=== PATIENT | female | born 1955 ===

== ENCOUNTER 2017-02-19 08:34 | Emergency (ER) | payer BC ==
--- NOTE | 2017-02-19 09:13 | UC ---
Knee Pain HPI - HPI Summary HPI Summary: 61 year old female with left knee complaint. LEFT KNEE INJURY 2 WKS AGO FROM A FALL. PT LANDED ON A ROCK DIRECTLY ON HER KNEE CAP. KNEE IS PAINFUL AND UNCOMFORTABLE WHEN PT IS ON IT. Can walk on it. Has had history of knee dislocating for many years. No significant swelling, ecchymosis or pain without movement. No weakness in the left leg or knee. Pain with movement especially after sitting for a while [ End ] - History of Current Complaint Chief Complaint: UCLowerExtremity Stated Complaint: LEFT KNEE PAIN Time Seen by Provider: 02/19/17 08:59 Hx Obtained From: Patient Hx Last Menstrual Period: NONE Onset/Duration: Sudden Onset Severity Initially: Moderate Severity Currently: Mild Pain Scale Used: 0-10 Numeric - 4 Character: Stiffness Aggravating Factor(s): Prolonged Standing, Stairs Alleviating Factor(s): Position Associated Signs And Symptoms: Positive: Negative - Allergies/Home Medications Allergies/Adverse Reactions: Allergies Allergy/AdvReac Type Severity Reaction Status Date / Time No Known Allergies Allergy Verified 02/19/17 08:49 Home Medications: Home Medications Esomeprazole Magnesium [Nexium 24Hr] 20 mg PO DAILY 02/19/17 [History Confirmed 02/19/17] Multiple Vitamins W/ Minerals [Multivitamin Womens] 1 tab PO DAILY 02/19/17 [ History Confirmed 02/19/17] Nortriptyline CAP* [Pamelor CAP*] 75 mg PO BEDTIME 02/19/17 [History Confirmed 02/19/17] Propranolol TAB* [Inderal TAB*] 1 tab PO DAILY 02/19/17 [History Confirmed 02/19] SUMAtriptan TAB* [Imitrex TAB*] 25 mg PO SEE INSTRUCTIONS 02/19/17 [History Confirmed 02/19/17] PMH/Surg Hx/FS Hx/Imm Hx Previously Healthy: Yes Psychological History: Other - migraine Other Psychological History: migraines-- none lately - Surgical History Surgical History: None - Family History Known Family History: Negative: Blood Disorder - Social History Lives: With Family Alcohol Use: Occasionally Substance Use Type: None Smoking Status (MU): Never Smoked Tobacco Review of Systems Musculoskeletal: Decreased ROM - left knee All Other Systems Reviewed And Are Negative: Yes Physical Exam Triage Information Reviewed: Yes Appearance: Well-Appearing, No Pain Distress, Well-Nourished Vital Signs: Initial Vital Signs Temp 99.1 F 02/19/17 08:41 Pulse 88 02/19/17 08:41 Resp 16 02/19/17 08:41 BP 109/77 02/19/17 08:41 Pulse Ox 100 02/19/17 08:41 Vital Signs Reviewed: Yes Respiratory Exam: Normal Cardiovascular Exam: Normal Musculoskeletal: Positive: Strength Intact, ROM Limited @ - with flexion and extension of the knee due to discomfort, Other: - Neg popliteal fossa swelling. no homans. no ecchymosis. no swelling. small healing abrasion bottom aspect of patella about 0.5 x 0.5 cm. no patellar pain to palpation. medial and lateral joint line without tenderness. pain with movement of the patella inferior and superior at the inferior patellar tendon the most tenderness that is still mild in nature. patella is not dislocated.. Negative: Edema @ Knee Pain Course/Dx - Course Course Of Treatment: Discussed with the nature of discomfort likely PFS / patellar tendon inflammation -- start meloxicam- refer to PT / start home PT and if Sx perist then go to Ortho. she declined xray at this time. 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 Please follow up with ortho if there are any concerns
[2017-02-19 09:14] VITALS: BP 109/77
== END 2017-02-19 09:22 | disposition home or self-care (01) ==
LOC: UCCORT 08:34
DX: M22.2X2 Patellofemoral disorders, left knee (principal)
CPT/HCPCS: 99212; G0463